=== PATIENT | male | born 1985 | race Caucasian/White ===

== ENCOUNTER → 2022-01-26 | Outpatient (CLI) | payer OTHER ==
--- NOTE | 2022-01-26 14:42 | US ---
EXAMINATION TYPE: US scrotum with doppler. DATE OF EXAM: 01/26/2022 COMPARISON: NONE CLINICAL HISTORY: 36-year-old male N50.811 RIGHT TESTICULAR PAIN. Injury about 3 yrs but small persis ting palpable area per patient at the inferior aspect on the right TECHNIQUE: Grayscale and color Doppler Duplex imaging performed of the scrotum. FINDINGS: EXAM MEASUREMENTS: TESTICLES: Right Testicle: 5.5 x 2.7 x 4.0 cm Left Testicle: 5.5 x 2.9 x 3.1 cm EPIDIDYMIS HEAD: Right Epididymis: 1.7 x 0.8 cm Left Epididymis: 1.3 x 0.6 cm Doppler performed to assess for testicular vascularity; good bilateral color flow and waveforms are s een. There is no evidence of testicular torsion. Presence of hydroceles: no Presence of varicoceles: no Scanned over the patient's area of concern of the right inferior scrotal area. While the right epidi dymus tail appears slightly thickened and heterogeneous, it is not hypervascular. The left side is sl ightly less prominent. IMPRESSION: 1. No sonographic evidence for testicular torsion or mass. 2. Trace bilateral hydroceles. 3. Mild heterogeneity and thickening along the inferior tail of the right epididymis of questionable clinical significance. Correlate to exclude a mild epididymitis though there is no hyperemia which is generally seen with epididymitis.
== END | disposition home or self-care (01) ==
LOC: RADUSWWP 13:32
PROVIDERS: ATTEND Family Medicine
DX: N43.3 Hydrocele, unspecified (principal)
CPT/HCPCS: 76870; 93975